=== PATIENT | male | born 1970 | race Two or more races ===

== ENCOUNTER 2022-08-06 14:53 | Outpatient (REF) | payer BC, SELFPAY | END 2022-08-06 14:54 | disposition home or self-care (01) | LOC: HO.LNP 14:53 | PROVIDERS: PCP Internal Medicine; Referring Provider Internal Medicine; Visit Provider Surgery | DX: L02.91 Cutaneous abscess, unspecified (principal); L72.3 Sebaceous cyst | CPT/HCPCS: 10060; 87070; 87205 ==

== ENCOUNTER → 2022-08-13 14:07 | Outpatient (BNVA) | payer BC, SELFPAY | PROVIDERS: PCP Internal Medicine; Visit Provider Surgery | DX: Z13.89 Encounter for screening for other disorder (principal) ==

== ENCOUNTER → 2022-08-13 14:07 | Outpatient (BNVA) | payer BC, SELFPAY | PROVIDERS: PCP Internal Medicine; Visit Provider Surgery | DX: Z13.89 Encounter for screening for other disorder (principal) ==

== ENCOUNTER 2022-09-17 14:26 | Outpatient (REF) | payer BC, SELFPAY ==
--- NOTE | ~2022-09-17 | US_ITS ---
EXAMINATION: US CHEST CLINICAL INFORMATION: Subcutaneous mass. COMPARISON: None available. TECHNIQUE: Limited imaging through the clinically palpable subcutaneous mass upper back region and right lower rib cage where a cyst was drained. FINDINGS: There is anechoic area of 1.6 x 1.6 x 0.6 cm along the right inferior rib cage appears to be a fluid collection where previously it was drained. There is a round hyperechoic area of palpable lump along the left upper mid back region measuring 1.1 x 1.0 x 0.6 cm. There is no increased vascularity and appears well capsulated. It is most likely a lymph node or a complex cyst. US/US chest IMPRESSION: . Two areas as described above. 1 there is a fluid collection along the right anterior rib cage likely residual fluid collection from previous fluid drainage. 2. Subcutaneous palpable lesion, left mid and upper back region, may represent a small lymph node or a complex cyst.
== END 2022-09-17 14:27 | disposition home or self-care (01) ==
LOC: HO.US 14:26
PROVIDERS: PCP Internal Medicine; Visit Provider Surgery
DX: M79.89 Other specified soft tissue disorders (principal)
CPT/HCPCS: 76604

== ENCOUNTER 2023-03-12 07:41 | Outpatient (REF) | payer BC, SELFPAY ==
[2023-03-12 07:46] VITALS: BP 133/80; PULSE 73; RESP 16; TEMP 36.4; O2SAT 98; BMI 29.2
[2023-03-12 08:40] VITALS: BP 128/84; PULSE 67; RESP 16; O2SAT 98
--- NOTE | 2023-03-12 12:54 | W.PM.OPN ---
Operative Note Operative Note Date of Service: 03/12/23 Narrative: Preoperative diagnosis: Sebaceous cyst right chest and left upper back Postoperative diagnosis: Same Procedure: Excision of sebaceous cyst right chest and left upper back Surgeon: Samson Mcnair MD Healthcare Risk Control Consultant: None Anesthesia: Sensorcaine 0.5% with epinephrine Indications for procedure: 53-year-old male patient with a previous history of infected cyst of the right chest presenting for excision of the sebaceous cyst of the right chest and left midback Operative findings: Noninfected cyst of back and chest, 1.5 cm each Specimen: Sebaceous cyst right chest and left upper back Estimated blood loss: 2 mL Complications: None Procedure details: Patient was brought to the minor surgery suite and placed in a prone position. The site of surgery was confirmed by the patient in the left mid back and right chest. After assuring informed consent the skin was prepped with Betadine over the left midback and draped in a sterile fashion. A time-out was called the consent confirmed. Local anesthesia was infiltrated around the lesion elliptical incision was then created with a scalpel carried out through subcutaneous tissue and around the cyst wall. The cyst is extended approximately 2 cm deep to the skin. Lesion was completely excised and sent to pathology for further examination. Hemostasis was assured using light pressure. Dermis was then reapproximated using interrupted 3-0 Polysorb sutures. Skin was closed using interrupted 4-0 nylon sutures. Sterile dressings consisting of 2 x 2 gauze and Tegaderm were then applied. Attention was then directed to the right chest sebaceous cyst. Patient was placed in a supine position. Skin over the cyst was prepped with Betadine and draped in a sterile fashion. Local anesthesia was then infiltrated around the lesion an elliptical incision created with a 15 blade scalpel. This was then carried out through subcutaneous tissue and around the cyst wall. Lesion was passed off the table and sent to pathology for further examination. After assuring adequate hemostasis the dermis was reapproximated using interrupted 3-0 Polysorb sutures. Skin was closed using interrupted 4-0 nylon sutures. Sterile dressings were then applied. The patient tolerated the procedure well. He was discharged to home in stable condition.
== END 2023-03-12 07:42 | disposition home or self-care (01) ==
LOC: HO.MS 07:41
PROVIDERS: PCP Internal Medicine; Visit Provider Surgery
PROC: (CPT 11402; principal; 2023-03-12 08:00)
DX: L72.0 Epidermal cyst (principal)
CPT/HCPCS: 11402 ×2; 88304

== ENCOUNTER → 2023-03-12 07:41 | Outpatient (BNV) | payer BC, SELFPAY | PROVIDERS: PCP Internal Medicine; Visit Provider Surgery | DX: L72.0 Epidermal cyst (principal) | CPT/HCPCS: 11402 ==

== ENCOUNTER 2023-03-19 11:43 | Outpatient (AMB) | payer BC, SELFPAY ==
--- NOTE | 2023-03-19 11:52 | A.OFFVIS_ITS ---
Intake Vital Signs 03/19/23 11:54 Height 5 ft 8 in Weight 191 lb 12.835 oz BMI 29.2 Pulse 62 Intake Visit Reasons: S/P excision inclusion cyst Rt chest & Lt mid back Intake Note: Patient is seen in office for post op assessment post excision of inclusion cyst right chest & mid back. Patient c/o: Coater Helper Required: No Accompanied by: Self / Same As Patient Allergies No Known Allergies Allergy (Verified 03/19/23 11:52) HPI HPI Comments History of Present Illness Details Patient returns 1 week following excision of a epidermal inclusion cyst of the right chest and posterior midback. He tolerated the procedure well and denies any ongoing symptoms. He returns today for suture removal. ON LICENSE OF [facility] Surgical History (Updated 03/19/23 @ 11:54 by KRIS Velasquez) History of excision of mass (03/12/23) History of excision of mass (08/06/22) Physical Exam Vital Signs: Last Vital Signs Pulse 62 03/19/23 11:54 BMI result Body Mass Index 29.2 Chest Other: Excision site in the right anterior chest and left midback is clean, dry, and intact. Sutures removed and the wounds found to be well healed. Assessment & Plan Assessment & Plan (1) Sebaceous cyst: Code(s): L72.3 - Sebaceous cyst Plan 53-year-old male patient status post excision of epidermal inclusion cyst x2. His wounds are clean, dry, and intact. Sutures removed and the wounds found to be well healed. He should follow up as needed. Coding Level of Care Code Global (20372) Diagnoses Sebaceous cyst L72.3
[2023-03-19 11:54] VITALS: PULSE 62; BMI 29.2
== END 2023-03-19 11:48 | disposition home or self-care (01) ==
LOC: HO.HGS 11:43
PROVIDERS: PCP Internal Medicine; Visit Provider Surgery
DX: L72.3 Sebaceous cyst (principal)
CPT/HCPCS: 99024

== ENCOUNTER → 2023-03-19 11:43 | Outpatient (BNVA) | payer BC, SELFPAY | PROVIDERS: PCP Internal Medicine; Visit Provider Surgery ==